=== PATIENT | female | born 1935 | race Caucasian/White ===

== ENCOUNTER 2021-04-14 17:21 | Emergency (ER) | payer MEDICARE, OTHER, SELFPAY ==
[2021-04-14] VITALS (34 sets, daily range): BP systolic 109–154; BP diastolic 54–83; PULSE 64–85; RESP 12–21; TEMP 36.3; O2SAT 95–100
--- NOTE | ~2021-04-14 | CT_ITS ---
EXAMINATION: CT cervical spine wo con DATE: 04/14/2021 19:04 INDICATION: Neck pain. Fall. TECHNIQUE: Computed tomography (CT) of the cervical spine was performed without intravenous contrast. Automated exposure control and iterative reconstruction technique were employed. The dose-length pro duct was 89.83 mGy-cm. COMPARISON: None FINDINGS: There is mild scarring at the lung apices. There is 2 mm retrolisthesis of C3 on C4. Verteb ral body heights are normal. There is severely decreased disc height from C3-C4 through C5-C6 and mod erately decreased disc height at C6-C7. There is interbody fusion at C4-C5. The following disc levels are specifically discussed: C2-C3: There is mild bilateral uncovertebral joint osteoarthritis. There is severe bilateral facet hernán int osteoarthritis. There is mild left neural foraminal stenosis. There is no central canal stenosis. C3-C4: There is severe bilateral uncovertebral joint osteoarthritis. There is severe bilateral facet joint osteoarthritis. There is mild right and moderate left neural foraminal stenosis. There is mild central canal stenosis. C4-C5: There is ankylosis of the uncovertebral joints with mild hypertrophy. There is ankylosis of th e facet joints with moderate hypertrophy. There is mild bilateral neural foraminal stenosis. There is no central canal stenosis. C5-C6: There is severe bilateral uncovertebral joint osteoarthritis. There is mild bilateral facet hernán int osteoarthritis. There is moderate bilateral neural foraminal stenosis. There is mild central flora l stenosis. C6-C7: There is mild right and moderate left uncovertebral joint osteoarthritis. There is severe righ t and mild left facet joint osteoarthritis. There is mild bilateral neural foraminal stenosis. There is mild central canal stenosis. C7-T1: There is no uncovertebral joint osteoarthritis. There is moderate right and mild left facet hernán int osteoarthritis. There is mild bilateral neural foraminal stenosis. There is no central canal sten osis. IMPRESSION: 1. No fracture. 2. Severe cervical spondylosis. Reviewed, dictated and finalized at location A.
--- NOTE | ~2021-04-14 | CT_ITS ---
EXAMINATION: CT brain wo con DATE: 04/14/2021 18:07 INDICATION: Head injury. TECHNIQUE: Computed tomography (CT) of the head was performed without intravenous contrast. The mA wa s adjusted according to patient size. Iterative reconstruction technique was employed. The dose-lengt h product was 529.67 mGy-cm. COMPARISON: Head CT 12/13/2015, brain MRI 12/14/2015 FINDINGS: There is diffuse volume loss of the cerebellum. There are scattered areas of low attenuatio n in the cerebral white matter. There is a 1.4 cm hyperdense mass in right frontal lobe with surround ing low attenuation. There is no acute ischemic infarct. The ventricles are normal in size. There are likely changes of ocular lens replacement surgeries. There is mucosal thickening in the paranasal si nuses. The mastoid air cells are normal. There is a right periorbital laceration. IMPRESSION: 1. 1.4 cm hyperdense mass in right frontal lobe, likely an acute hemorrhagic contusion, especially gi linn the site of injury. Note that neoplasm can have the same appearance. 2. Moderate nonspecific cerebral white matter disease, which likely represents chronic small vessel i schemic disease. 3. Chronic cerebellar atrophy. The differential diagnosis includes normal aging, alcohol abuse, and m edication effects. Reviewed, dictated and finalized at location A. IMPRESSION: 1. 1.4 cm hyperdense mass in right frontal lobe, likely an acute hemorrhagic co ntusion, especially given the site of injury. Note that neoplasm can have the s jeremy appearance. 2. Moderate nonspecific cerebral white matter disease, which likely represents chronic small vessel ischemic disease. 3. Chronic cerebellar atrophy. The differential diagnosis includes normal aging , alcohol abuse, and medication effects.
--- NOTE | 2021-04-14 18:40 | ED.GENADULT ---
HPI - General Adult General Chief complaint: Wound/Laceration Stated complaint: FALL Time Seen by Provider: 04/14/21 17:46 Source: patient and family (son) Mode of arrival: EMS Limitations: other (memory status) History of Present Illness HPI narrative: Patient is a 86-year-old female presenting with chief complaint of laceration to her right brow she sustained prior to arrival after falling and hitting her head on the doorknob according to EMS. Patient son states that he recently dropped her off back home after taking her out for lunch and he received a phone call stating that she had fallen. Patient states that she was walking into the home and thought she caught someone's name so she turned around and began to feel. Patient states that she is not sure what caused her to fall but blames her shoes. However patient was wearing the same new balance that she generally wears on a daily basis. Patient denies any pain or symptoms other than discomfort to her right brow. Patient fell 3 to 4 months ago according to her son and hit and lacerated the same area. He reports she had a CT performed at that time which was normal. Patient denies any changes to her vision or hearing. Patient denies any bleeding or drainage from any of her orifices. Patient denies any pain to her chest, back, or extremities. Patient is not on blood thinner. 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 Related Data Home Medications Medication Instructions Recorded Confirmed levothyroxine 88 mcg PO DAILY 04/14/21 04/14/21 Allergies Allergy/AdvReac Type Severity Reaction Status Date / Time No Known Allergies Allergy Unverified 04/14/21 17:30 Review of Systems Review of Systems: CONSTITUTIONAL: Denies fever, chills, or sweats. EYES: Denies visual changes, redness, or discharge. ENT: Denies rhinorrhea, congestion, sore throat, or otalgia. CARDIOVASCULAR: Denies chest pain, palpitations, or edema. RESPIRATORY: Denies cough or dyspnea. GASTROINTESTINAL: Denies abdominal pain, nausea, vomiting, or diarrhea. GENITOURINARY: Denies dysuria or hematuria. SKIN: Reports laceration denies rash or itching. MUSCULOSKELETAL: Denies back pain, joint pain, or myalgia. NEUROLOGIC: Reports fall denies headache, numbness, dizziness, or weakness. PSYCHIATRIC: Denies anxiety or depression. Exam Narrative: GENERAL: Well-appearing, well-nourished, and in no acute distress. HEAD: Normocephalic, atraumatic. EYES: PERRLA and EOMI. ENT: Nares clear, no rhinorrhea or epistaxis. Mucous membranes moist. Oropharynx without tonsillar hypertrophy exudate or other lesions. Bilateral TMs pearly sandy nonbulging. No hemotypanum. NECK: Supple. No adenopathy or masses. ROM intact. No pain with ROM. CHEST: Clear to auscultation. No respiratory distress. No wheezes rales or rhonchi HEART: Regular rate and rhythm. ABDOMEN: Soft, nontender, nondistended, normal active bowel sounds. EXTREMITIES: Normal range of motion. No edema. SKIN:2cm laceration to right brow. Warm, dry, no rash. NEURO: No focal deficits. Alert and oriented to person and place. PSYCH: Normal mood and affect. Course Vital Signs Vital signs: Vital Signs Temperature 97.4 F L 04/14/21 17:28 Pulse Rate 69 04/14/21 17:28 Respiratory Rate 18 04/14/21 17:28 Blood Pressure 150/67 H 04/14/21 17:28 Pulse Oximetry 100 04/14/21 17:28 Temperature 97.4 F L 04/14/21 17:28 Pulse Rate 69 04/14/21 17:28 Respiratory Rate 18 04/14/21 17:28 Blood Pressure 150/67 H 04/14/21 17:28 Pulse Oximetry 100 04/14/21 17:28 Transfer Transfered to: [facility] Transportation: ALS Transfer rationale: neurosurgery and geritrauma evalustion and management Accepting physician: Dr Quintana- neurosurgery Transfer comments: right frontal hemmoragic mass management Procedures Laceration Laceration 1: Site: face Side (If applicable): right Size (cm): 2 Descripti
[2021-04-14 22:57] LABS: EDCOVIDSCREEN Negative (Negative)
--- NOTE | 2021-04-14 23:09 | PC.NURSE ---
Updated transfer place with negative covid swab - they state they will call back with room #
--- NOTE | 2021-04-14 23:59 | PC.NURSE ---
[facility] [id number]
--- NOTE | 2021-04-15 00:43 | PC.NURSE ---
Addendum entered by Crystal Rasmussen 04/15/21 01:59: 0158: called [facility] for status on eta....0300 Original Note: 0001: Called [facility] to transport to [facility] [id number]...ETA [id number]
[2021-04-15 01:59] VITALS: BP 116/74; PULSE 70; RESP 16; O2SAT 98
[2021-04-15 18:52] LABS: SARS-CoV-2 RNA PCR Negative
== END 2021-04-15 03:19 | disposition short-term general hospital (02) ==
PROVIDERS: Physician Assistant; Emergency Provider Emergency Medicine; PCP Internal Medicine
DX: S06.340A Traumatic hemorrhage of right cerebrum without loss of consciousness, initial encounter (principal); Z20.822 Contact with and (suspected) exposure to COVID-19; W18.30XA Fall on same level, unspecified, initial encounter
CPT/HCPCS: 12011; 36415; 70450; 72125; 87426; 99285; C9803; U0003; U0005

== ENCOUNTER 2021-05-02 10:15 | Emergency (ER) | payer MEDICARE, OTHER, SELFPAY ==
--- NOTE | ~2021-05-02 | XR_ITS ---
EXAMINATION: XR G tube evaluation w imaging EXAM DATE: 05/02/2021 11:40 INDICATION: Tube in stomach? TECHNIQUE: Frontal projection(s) of the abdomen for interpretation after technologist injected 30 mL Omnipaque 350 solution through tube in place. FINDINGS: Injected contrast outlining the inflated balloon which is in the gastric antrum, also outli manny of the rugal folds. There is contrast extending along the tube tract and exiting, along the outs jose d of patient's abdomen. No definite intraperitoneal contrast. There is moderate amount of colonic s tool and gas, no dilated small bowel/obstruction. Lung bases unremarkable. There are bony degenerativ e changes. IMPRESSION: Balloon anchor, tube in position. Contrast leaking along the tube tract out of the patien t. Reviewed, dictated and finalized at location A. IMPRESSION: Balloon anchor, tube in position. Contrast leaking along the tube t ract out of the patient.
[2021-05-02 10:20] VITALS: BP 125/66; PULSE 90; RESP 16; TEMP 36.2; O2SAT 100
--- NOTE | 2021-05-02 13:11 | ED.GENADULT ---
HPI - General Adult General Chief complaint: Unspecified Stated complaint: PULLED OUT G-TUBE Time Seen by Provider: 05/02/21 10:24 Source: EMS and other Mode of arrival: EMS Limitations: clinical condition History of Present Illness HPI narrative: 86-year-old female Arrives by EMS for replacement of G-tube We did not get a prior report from the SNF and had to do quite a bit of sleuthing and discussion with them and her son to try to fill in the back story Patient was apparently transferred from here to [place] about 3 weeks ago after falling and sustaining a hemorrhagic brain contusion It sounds like while she was there she kind of started to get a more or less failure to thrive type picture with some sundowning and a poor appetite and minimal intake and kind of alternating days where she would seem to be fine and alternating days where she would seem very weak lethargic and confused There is a discussion with family at some point last week and it was felt that some of this stuff might be nutritional and they decided that they would be okay with her having a G-tube placed for supplemental feedings In addition it seems like maybe the SNF felt like that would be necessary for her nutrition to be corrected as well April 26 she had a G-tube placed by interventional radiology at [place] A couple days after that she was discharged to [facility] Patient is always very restless and rearranging things and picking at things They had been having her wear an abdominal binder to protect the G-tube but last night when she had the binder taken down to provide local care she grabbed the tube and pulled it out Her son thought that prior to that she had actually been looking pretty good yesterday This would have been 5 days after it was placed, and the tract could not yet be assumed to have matured Staff there was able to place a 18 Czech silicone High catheter back through the opening and secure it and has not used it She was sent over here to have it replaced Appears that she actually is on a soft diet and is taking p.o., just not especially well Also appears on observation in the ER that the G-tube definitely has her attention and she spends most of her time when she is awake picking at the dressings pulling at the tape securing the dressings or pulling on the tube itself making it very questionable in my mind how viable it is going to be to have a tube in there in the long-term Related Data Home Medications Medication Instructions Recorded Confirmed calcium carbonate 500 mg PO DAILY 05/02/21 cholecalciferol (vitamin D3) 50 mcg PO DAILY 05/02/21 [Vitamin D3] cyanocobalamin (vitamin B-12) 1,000 mcg PO DAILY 05/02/21 docusate sodium 100 mg PO DAILY 05/02/21 levothyroxine 75 mcg PO DAILY 05/02/21 quetiapine 25 mg PO HS 05/02/21 sennosides [Senna Lax] mg 05/02/21 Allergies Allergy/AdvReac Type Severity Reaction Status Date / Time No Known Allergies Allergy Unverified 04/14/21 17:30 Review of Systems Review of Systems: All systems reviewed & are unremarkable except as noted in HPI and below ROS unobtainable: Yes other (Poor historian, limited ) Constitutional: Constitutional: Denies fever(s) Respiratory: Respiratory: Denies dyspnea Gastrointestinal: Gastrointestinal: Denies vomiting Exam Const: General: no acute distress and alert Other: Elderly, frail HENMT: Head: normocephalic Ears: external ears normal General nose exam: no epistaxis Other: Fading bruise next to eye Eyes: Conjunctivae: conjunctivae normal EOM: EOMs intact bilaterally Neck: Neck: normal visual inspection, supple and no JVD Resp: Effort & Inspection: normal respiratory effort and not labored Auscultation: no rales, no rhonchi, no wheezes and other (BS =) Cardio: Rate: regular rate Rhythm: regular rhythm Heart sounds: no murmurs GI: GI Palp: Yes Soft to palpation, No Tenderness to palpation present (GI), No Guarding due to
[2021-05-02 13:51] LABS: Basophils Percent Auto 0.3 % (0.2-1.2); Eosinophils Absolute Auto 0.1 K/mm3 (0-0.3); Hemoglobin 10.8 g/dL (12.0-15.0); Immature Granulocyte Absolute 0.05 K/mm3 (0.00-0.031); Immature Granulocyte Percent A 0.4 % (0-0.5); Lymphocytes Absolute Auto 1.18 K/mm3 (0.9-3.2); Lymphocytes Percent Auto 9.4 % (18.3-44.2); Mean Corpuscular HGB Conc 32.7 g/dl (32-36); Mean Corpuscular Hemoglobin 31.3 pg (26-34); Mean Corpuscular Volume 95.7 fl (80-100); Mean Platelet Volume 9.2 fl (7.4-10.4); Monocytes Absolute Auto 0.8 K/mm3 (0.1-0.6); Monocytes Percent Auto 6.2 % (2.6-8.5); Neutrophils Absolute Auto 10.4 K/mm3 (1.3-6.7); Neutrophils Percent Auto 82.7 % (45.5-73.1); Platelet Count Result 284 k/mm3 (150-375); Red Blood Count 3.45 M/mm3 (4.2-5.4); Red Cell Distribution Width 13.6 % (11.5-14.5); White Blood Count 12.6 K/mm3 (4.5-10.0)
[2021-05-02 14:07] LABS: Anion Gap 3 mmol/L (8-16); Blood Urea Nitrogen 26 mg/dL (7-17); Carbon Dioxide 35 mmol/L (22-30); Chloride 95 mmol/L (98-107); Estimated CRCL calculation 48 ml/min; Estimated Glomerular Filt Rate > 60; Glucose 109 mg/dL (65-110); Potassium 4.4 mmol/L (3.4-5.0); Sodium 133 mmol/L (137-145)
[2021-05-02 14:15] VITALS: BP 133/60; PULSE 89; RESP 16; O2SAT 100
[2021-05-02 14:24] LABS: Add Urine Microscopic? YES; Appearance Urine Cloudy (Clear); Bacteria Urine 1+ /hpf; Bilirubin Urine Negative (Negative); Color Urine Yellow (Yellow); Glucose Urine UA Negative (Negative); Ketones Urine Negative (Negative); Leukocyte Esterase Ur 3+ LEU/UL (Negative); Mucus Urine Rare /lpf; Nitrate Urine Negative (Negative); Protein Urine 2+ mg/dL (Negative); Specific Grav Ur 1.018 (1.001-1.035); Urobilinogen Urine Negative mg/dL (<2.0); WBC Urine >75 /hpf
[2021-05-02 14:25] LABS: Blood Urine Negative (Negative)
[2021-05-02] MEDS: HALOPERIDOL LACTATE 5 MG/ML VIAL 2.5 MG IM (16:20)
[2021-05-02 16:40] VITALS: BP 137/93; PULSE 87; RESP 16; O2SAT 100
== END 2021-05-02 16:58 ==
PROVIDERS: Emergency Provider Emergency Medicine; PCP Internal Medicine
DX: Z43.1 Encounter for attention to gastrostomy (principal); N39.0 Urinary tract infection, site not specified
CPT/HCPCS: 36415; 49465; 51701; 80048; 81001; 85025; 87077; 87086; 87186; 96365; 96372; 99284; J0696; J1630

== ENCOUNTER 2021-05-03 17:12 | Emergency (ER) | payer MEDICARE, OTHER, SELFPAY ==
--- NOTE | ~2021-05-03 | XR_ITS ---
XR abdomen obstructive series DATE: 05/03/2021 18:39 INDICATION: Feeding tube pulled out. Evaluate for free air. TECHNIQUE: Portable supine and upright AP views COMPARISON: 05/02/2021 G-tube evaluation with imaging FINDINGS: Gastrostomy tube is no longer evident. There is no evidence of intraperitoneal free air. There is a prominent of fecal material and contrast material within portions of the colon. No bowel o bstruction is evident. The psoas shadows are intact. No visceromegaly is detected. Diffuse osteopenia. IMPRESSION: No evidence of free intraperitoneal air Reviewed, dictated and finalized at [facility]. Reviewed, dictated and finalized at location A.
[2021-05-03 17:23] VITALS: BP 166/90; PULSE 95; RESP 14; TEMP 36.6; O2SAT 99
[2021-05-03] MEDS: PANTOPRAZOLE SODIUM IV 40 MG VIAL IV PUSH (18:07)
[2021-05-03 18:23] LABS: Basophils Absolute Auto 0.1 K/mm3 (0.0-0.1); Basophils Percent Auto 0.4 % (0.2-1.2); Eosinophils Absolute Auto 0.1 K/mm3 (0-0.3); Eosinophils Percent Auto 0.5 % (0-4.4); Hematocrit 33.3 % (37.0-47.0); Hemoglobin 10.9 g/dL (12.0-15.0); Immature Granulocyte Absolute 0.06 K/mm3 (0.00-0.031); Immature Granulocyte Percent A 0.5 % (0-0.5); Lymphocytes Percent Auto 7.7 % (18.3-44.2); Mean Corpuscular HGB Conc 32.7 g/dl (32-36); Mean Corpuscular Volume 94.6 fl (80-100); Mean Platelet Volume 8.8 fl (7.4-10.4); Monocytes Percent Auto 7.7 % (2.6-8.5); Neutrophils Absolute Auto 10.7 K/mm3 (1.3-6.7); Neutrophils Percent Auto 83.2 % (45.5-73.1); Platelet Count Result 369 k/mm3 (150-375); Red Blood Count 3.52 M/mm3 (4.2-5.4); Red Cell Distribution Width 13.4 % (11.5-14.5); White Blood Count 12.9 K/mm3 (4.5-10.0)
[2021-05-03 18:29] LABS: Prothrombin Time 13.5 Seconds (11.1-14.7)
[2021-05-03 18:30] LABS: Partial Thromboplastin Time 25.8 SECONDS (22.3-36.8)
[2021-05-03 18:31] LABS: Alanine Aminotransferase 39 U/L (4-35); Albumin Level 3.7 g/dL (3.5-5.1); Alkaline Phosphatase 76 U/L (38-126); Anion Gap 8 mmol/L (8-16); Aspartate Amino Transferase 52 U/L (14-36); Bilirubin,Total 0.5 mg/dL (0.2-1.3); Blood Urea Nitrogen 27 mg/dL (7-17); Calcium 9.6 mg/dL (8.4-10.2); Carbon Dioxide 38 mmol/L (22-30); Chloride 91 mmol/L (98-107); Estimated Glomerular Filt Rate > 60; Glucose 115 mg/dL (65-110); Potassium 4.4 mmol/L (3.4-5.0); Sodium 137 mmol/L (137-145)
[2021-05-03 18:48] VITALS: BP 154/62; PULSE 100; RESP 12; O2SAT 99
--- NOTE | 2021-05-03 18:50 | ED.GENADULT ---
HPI - General Adult General Chief complaint: GI Bleed Stated complaint: stoma issues Time Seen by Provider: 05/03/21 17:31 History of Present Illness HPI narrative: Patient is an 86-year-old female with dementia who presents ER with concerns for GI bleed. Patient had a G-tube that she ripped out 2 days ago. A replacement High with the balloon was inserted through the stoma, she ripped that out last night. She has been having acid weep out then apparently some coffee-ground appearing material came out which prompted the senior living to send her to the ER. Son present at bedside reports he does not want patient to have a G-tube any longer that is just a major problem. Related Data Home Medications Medication Instructions Recorded Confirmed calcium carbonate 500 mg PO DAILY 05/02/21 cholecalciferol (vitamin D3) 50 mcg PO DAILY 05/02/21 [Vitamin D3] cyanocobalamin (vitamin B-12) 1,000 mcg PO DAILY 05/02/21 docusate sodium 100 mg PO DAILY 05/02/21 levothyroxine 75 mcg PO DAILY 05/02/21 quetiapine 25 mg PO HS 05/02/21 sennosides [Senna Lax] mg 05/02/21 Allergies Allergy/AdvReac Type Severity Reaction Status Date / Time No Known Allergies Allergy Unverified 04/14/21 17:30 Review of Systems Review of Systems: ROS unobtainable: Yes unobtainable due to mental status PMFSH Past Medical History Medical History (Updated 05/03/21 @ 19:52 by Juan Carlos Wild MD) Dementia Dislodged gastrostomy tube Hypothyroid Social History Social History (Updated 05/03/21 @ 18:53 by Juan Carlos Wild MD) Social History: Lives at [facility] Exam Narrative: GENERAL: Chronically ill-appearing, well-nourished, and in no acute distress. HEAD: Normocephalic, atraumatic. EYES: PERRL and EOMI. CHEST: Clear to auscultation. No respiratory distress. HEART: Regular rate and rhythm. Normal peripheral pulses. ABDOMEN: Soft, nontender, nondistended, left upper quadrant stoma leaking gastric contents. No peritoneal signs of the abdomen. EXTREMITIES: Normal range of motion. No edema. SKIN: Warm, dry. The skin around the stoma site is irritated and has breakdown related to acidic material running down the wall of the abdomen. NEURO: Awake and alert, not oriented. PSYCH: Normal mood and affect. Course Course Emergency Course: Patient more comfortable after Ativan. No free air on x-ray. Discussed case with Dr. Quiroz who feels that despite the area being dilated it should close within 1 week. Also discussed with Dr. Enriquez who reports he thinks it is more open than typical due to repeated trauma that dilated the fistula. He also feels in the next week it should close and that we should address this with an ABD pad. Patient be treated with twice daily Protonix at home. Its not felt that patient has a GI bleed but is felt that she likely has bleeding from repeated trauma to the fistula. Patient was treated for UTI yesterday with ceftriaxone and is receiving meds at the senior living. Hemoglobin and white count stable. Vital Signs Vital signs: Vital Signs Temperature 97.9 F 05/03/21 17:23 Pulse Rate 95 05/03/21 17:23 Respiratory Rate 14 05/03/21 17:23 Blood Pressure 166/90 H 05/03/21 17:23 Pulse Oximetry 99 05/03/21 17:23 Temperature 97.9 F 05/03/21 17:23 Pulse Rate 69 05/04/21 00:18 Respiratory Rate 18 05/04/21 00:18 Blood Pressure 116/85 05/04/21 00:18 Pulse Oximetry 99 05/03/21 18:48 Medical Decision Making Vital Signs Vital Signs: Vital Signs Temperature 97.9 F 05/03/21 17:23 Pulse Rate 95 05/03/21 17:23 Respiratory Rate 14 05/03/21 17:23 Blood Pressure 166/90 H 05/03/21 17:23 Pulse Oximetry 99 05/03/21 17:23 Temperature 97.9 F 05/03/21 17:23 Pulse Rate 69 05/04/21 00:18 Respiratory Rate 18 05/04/21 00:18 Blood Pressure 116/85 05/04/21 00:18 Pulse Oximetry 99 05/03/21 18:48 Lab Data Result diagrams: 05/03/21 18:08 05/03/21
[2021-05-03] MEDS: LORazepam INJ (*CRX) 2 MG/ML VIAL 1 MG IV PUSH (18:55)
--- NOTE | 2021-05-03 22:26 | PC.NURSE ---
called [facility] to request transport. ETA [id number]
--- NOTE | 2021-05-03 23:21 | PC.NURSE ---
called [facility] for ETA update. ETA 0130 called [facility] to request transport. dispatch is paging out.
--- NOTE | 2021-05-03 23:39 | PC.NURSE ---
Confirmed [facility] is enroute. Cancelled [facility].
[2021-05-04 00:18] VITALS: BP 116/85; PULSE 69; RESP 18
== END 2021-05-04 00:20 ==
PROVIDERS: Emergency Provider Emergency Medicine; PCP Internal Medicine
DX: Z43.1 Encounter for attention to gastrostomy (principal); N39.0 Urinary tract infection, site not specified; F03.90 Unspecified dementia, unspecified severity, without behavioral disturbance, psychotic disturbance, mood disturbance, and anxiety; E03.9 Hypothyroidism, unspecified
CPT/HCPCS: 36415; 74019; 80053; 85025; 85610; 85730; 96374; 96375; 99284; C9113; J2060

== ENCOUNTER 2021-06-07 04:33 | Emergency (ER) | payer MEDICARE, OTHER, SELFPAY ==
--- NOTE | ~2021-06-07 | CT_ITS ---
EXAMINATION: CT cervical spine wo con DATE: 06/07/2021 05:53 INDICATION: Neck pain. Fall. TECHNIQUE: Computed tomography (CT) of the cervical spine was performed without intravenous contrast. Automated exposure control and iterative reconstruction technique were employed. The dose-length pro duct was 119.64 mGy-cm. COMPARISON: CT cervical spine 04/14/2021 FINDINGS: There is mild scarring at the lung apices. There is a 5 mm nodule in right upper lobe, like ly benign. There is 4 degrees dextrocurvature of cervical spine. There is 2 mm retrolisthesis of C3 o n C4. Vertebral body heights are normal. There is severely decreased disc height from C3-C4 through C 5-C6 and moderately decreased disc height at C6-C7. There is interbody fusion at C4-C5. The following disc levels are specifically discussed: C2-C3: There is mild bilateral uncovertebral joint osteoarthritis. There is severe bilateral facet hernán int osteoarthritis. There is mild left neural foraminal stenosis. There is no central canal stenosis. C3-C4: There is severe bilateral uncovertebral joint osteoarthritis. There is severe bilateral facet joint osteoarthritis. There is mild right and moderate left neural foraminal stenosis. There is mild central canal stenosis. C4-C5: There is mild bilateral uncovertebral joint osteoarthritis. There is ankylosis of the facet hernán ints with moderate hypertrophy. There is mild bilateral neural foraminal stenosis. There is no centra l canal stenosis. C5-C6: There is severe bilateral uncovertebral joint osteoarthritis. There is mild bilateral facet hernán int osteoarthritis. There is moderate bilateral neural foraminal stenosis. There is mild central flora l stenosis. C6-C7: There is mild right and moderate left uncovertebral joint osteoarthritis. There is severe righ t and mild left facet joint osteoarthritis. There is mild bilateral neural foraminal stenosis. There is mild central canal stenosis. C7-T1: There is no uncovertebral joint osteoarthritis. There is moderate right and mild left facet hernán int osteoarthritis. There is no neural foraminal stenosis. There is no central canal stenosis. IMPRESSION: 1. No fracture. 2. Severe cervical spondylosis. Reviewed, dictated and finalized at location A. ZIPPER TRIMMER
--- NOTE | ~2021-06-07 | XR_ITS ---
EXAMINATION: XR shoulder RT min 2V DATE: 06/07/2021 06:06 INDICATION: Right shoulder pain. Fall. TECHNIQUE: 2 views of right shoulder were obtained. COMPARISON: None. FINDINGS: There is a comminuted fracture of proximal right humerus including a nondisplaced component at the greater tuberosity and displaced component at the surgical neck. The main distal fracture fra gment demonstrates one shaft width medial displacement. There is mild osteoarthritis of glenohumeral joint. There are likely changes of distal clavicle resection and acromioplasty. IMPRESSION: 1. Comminuted two-part fracture of proximal right humerus. 2. Mild acromioclavicular joint osteoarthritis. Reviewed, dictated and finalized at location A. RAL RESOURCES PROFESSOR
--- NOTE | ~2021-06-07 | CT_ITS ---
EXAMINATION: CT brain wo con DATE: 06/07/2021 05:53 INDICATION: Head injury. TECHNIQUE: Computed tomography (CT) of the head was performed without intravenous contrast. The mA wa s adjusted according to patient size. Iterative reconstruction technique was employed. The dose-lengt h product was 605.33 mGy-cm. COMPARISON: Head CT 04/14/2021, brain MRI 12/14/2015 FINDINGS: There is diffuse volume loss of the cerebellum. There are scattered areas of low attenuatio n in the cerebral white matter. There is a 14 mm mass in right frontal lobe with hypodense center and periphery that is isodense to sandy matter. There is no acute ischemic infarct. The ventricles are no rmal in size. There is mild mucosal thickening in the ethmoid sinuses. The mastoid air cells are norm al. There are likely changes of ocular lens replacement surgeries. IMPRESSION: 1. 14 mm mass in right frontal lobe again seen with interval decrease in attenuation, consistent with subacute hematoma. Neoplasm cannot be excluded. 2. Moderate nonspecific cerebral white matter disease, which likely represents chronic small vessel i schemic disease. 3. Chronic cerebellar atrophy. The differential diagnosis includes normal aging, alcohol abuse, and m edication effects. Reviewed, dictated and finalized at location A. NG MACHINE SET UP OPERATOR IMPRESSION: 1. 14 mm mass in right frontal lobe again seen with interval decrease in attenu ation, consistent with subacute hematoma. Neoplasm cannot be excluded. 2. Moderate nonspecific cerebral white matter disease, which likely represents chronic small vessel ischemic disease. 3. Chronic cerebellar atrophy. The differential diagnosis includes normal aging , alcohol abuse, and medication effects.
--- NOTE | ~2021-06-07 | XR_ITS ---
EXAMINATION: XR shoulder RT min 2V DATE: 06/07/2021 07:33 INDICATION: Fracture of proximal right humerus status post reduction. TECHNIQUE: 3 views of right shoulder were obtained. COMPARISON: Right shoulder radiographs 06/07/2021 at 6:02 AM FINDINGS: There is a comminuted fracture of proximal right humerus with displaced fracture component at the surgical neck and impacted fracture component at the greater tuberosity. The main distal fract ure fragment demonstrates one shaft width anterior and medial displacement and shortening. There is a t least mild osteoarthritis of glenohumeral joint. There are likely changes of distal clavicle resect ion. IMPRESSION: 1. Comminuted three-part fracture of proximal right humerus with little change in alignment of the ma in distal fracture fragment. 2. Mild glenohumeral joint osteoarthritis. Reviewed, dictated and finalized at location A. E HAND IMPRESSION: 1. Comminuted three-part fracture of proximal right humerus with little change in alignment of the main distal fracture fragment. 2. Mild glenohumeral joint osteoarthritis.
[2021-06-07 04:33] VITALS: BP 99/50; PULSE 89; RESP 20; TEMP 36.4; O2SAT 100
--- NOTE | 2021-06-07 05:14 | ECG_ITS ---
Measurements Intervals [place] Rate: 97 P: 81 [place]: 137 QRS: 23 QRSD: 85 T: 64 QT: 297 QTc: 378 Interpretive Statements SINUS RHYTHM BORDERLINE R WAVE PROGRESSION, ANTERIOR LEADS CONSIDER INFERIOR INFARCT, AGE INDETERMINATE BORDERLINE T WAVE ABNORMALITY- HIGH LATERAL LEADS BASELINE ARTIFACT- I, II, III, AVR, AVL, AVF, V2-V3 ABNORMAL ECG Electronically Signed On 06-07-2021 16:15:21 [employer] by Markie Ireland D.O.
[2021-06-07 05:47] LABS: Basophils Percent Auto 0.1 % (0.2-1.2); Eosinophils Percent Auto 0.1 % (0-4.4); Hemoglobin 12.6 g/dL (12.0-15.0); Immature Granulocyte Absolute 0.04 K/mm3 (0.00-0.031); Immature Granulocyte Percent A 0.4 % (0-0.5); Lymphocytes Absolute Auto 1.43 K/mm3 (0.9-3.2); Lymphocytes Percent Auto 14.9 % (18.3-44.2); Mean Corpuscular HGB Conc 32.3 g/dl (32-36); Mean Corpuscular Hemoglobin 29.1 pg (26-34); Mean Corpuscular Volume 90.1 fl (80-100); Mean Platelet Volume 9.2 fl (7.4-10.4); Monocytes Absolute Auto 0.4 K/mm3 (0.1-0.6); Monocytes Percent Auto 3.8 % (2.6-8.5); Neutrophils Absolute Auto 7.7 K/mm3 (1.3-6.7); Neutrophils Percent Auto 80.7 % (45.5-73.1); Platelet Count Result 384 k/mm3 (150-375); Red Blood Count 4.33 M/mm3 (4.2-5.4); Red Cell Distribution Width 13.9 % (11.5-14.5); White Blood Count 9.6 K/mm3 (4.5-10.0)
[2021-06-07 05:57] LABS: INR 0.9; Prothrombin Time 12.1 Seconds (11.1-14.7)
[2021-06-07 05:58] LABS: Partial Thromboplastin Time 22.8 SECONDS (22.3-36.8)
--- NOTE | 2021-06-07 06:30 | ED.FALL ---
HPI - Fall General Chief Complaint: Fall Stated Complaint: unwitnessed fall, r shoulder pain, HI Time Seen by Provider: 06/07/21 04:54 Source: patient Mode of arrival: EMS Limitations: dementia History of Present Illness HPI Narrative: This is an 86 year old female with history dementia, subdural hematoma who presents from [facility] for evaluation of a fall. Patient has history of frequent falls. She has come from [facility]. She had a ground level fall but no LOC. She was found to have hematoma to head. she is complaining of right shoulder pain. Related Data Home Medications Medication Instructions Recorded Confirmed calcium carbonate 500 mg PO DAILY 05/02/21 cholecalciferol (vitamin D3) 50 mcg PO DAILY 05/02/21 [Vitamin D3] cyanocobalamin (vitamin B-12) 1,000 mcg PO DAILY 05/02/21 docusate sodium 100 mg PO DAILY 05/02/21 levothyroxine 75 mcg PO DAILY 05/02/21 quetiapine 25 mg PO HS 05/02/21 sennosides [Senna Lax] mg 05/02/21 Allergies Allergy/AdvReac Type Severity Reaction Status Date / Time No Known Allergies Allergy Verified 06/07/21 04:49 Review of Systems Review of Systems: All systems reviewed & are unremarkable except as noted in HPI and below PMFSH Past Medical History Medical History (Updated 06/07/21 @ 08:40 by Jen Holman MD) Dementia Dislodged gastrostomy tube History of gastrostomy tube placement Hypothyroid Intracranial hemorrhage Social History Social History (Updated 05/03/21 @ 18:53 by Juan Carlos Wild MD) Social History: Lives at [facility] Exam Const: General: alert Nutritional Appearance: thin HENMT: Head: contusion (ecchymosis to right forehead and face) Throat: uvula midline Eyes: Pupils: Equal, round and reactive pupils present EOM: EOMs intact bilaterally Chest: Chest palpation & inspection: normal inspection of the chest Resp: Effort & Inspection: normal respiratory effort and no retractions Auscultation: clear to auscultation bilaterally Cardio: Rate: regular rate Rhythm: regular rhythm Heart sounds: no murmurs GI: GI Palp: Yes Soft to palpation, No Tenderness to palpation present (GI) and No Guarding due to palpation present (GI) Neuro: General: moves all extremities (except right shoulder due to pain, able to move fingers) Extrem: Other: right shoulder tenderness and swelling Psych: Affect: Anxious affect present Course Reevaluation(s) Reevaluation #1: I Discussed with patient's son patient injury. He understands she will be discharged to [facility] in [facility] immobilizer. No new intracranial hemorrhage. PAtient is more calm now after pain medications. Date: 06/07/21 Time: 08:37 Consultations Consultation #1: I discussed case with Dr. Mejia who agrees patient to be placed in shoulder immobilizer and follow up. Date: 06/07/21 Time: 08:10 Vital Signs Vital signs: Vital Signs Temperature 97.6 F 06/07/21 04:33 Pulse Rate 89 06/07/21 04:33 Respiratory Rate 20 06/07/21 04:33 Blood Pressure 99/50 L 06/07/21 04:33 Pulse Oximetry 100 06/07/21 04:33 Temperature 97.6 F 06/07/21 04:33 Pulse Rate 86 06/07/21 09:49 Respiratory Rate 16 06/07/21 09:49 Blood Pressure 142/62 H 06/07/21 09:49 Pulse Oximetry 98 06/07/21 09:49 MDM - Fall Medical Records Attestation: I reviewed the patient's medical records. Lab Data Attestation: I reviewed the patient's lab results. Result diagrams: 06/07/21 05:27 06/07/21 06:30 Labs: Lab Results 06/07/21 06/07/21 06/07/21 Range/Units 05:27 05:27 06:16 WBC 9.6 (4.5-10.0) K/mm3 RBC 4.33 (4.2-5.4) M/mm3 Hgb 12.6 (12.0-15.0) g/dL Hct 39.0 (37.0-47.0) % MCV 90.1 (80-100) fl MCH 29.1 (26-34) pg MCHC 32.3 (32-36) g/dl RDW 13.9 (11.5-14.5) % Plt Count 384 H (150-375) k/mm3 MPV 9.2 (7.4-10.4) fl Immature Gran % (Auto) 0.4 (0-0.5) % Neut % (Auto
[2021-06-07] MEDS: SODIUM CHLORIDE 0.9% IV 1,000 ML 999 ML IV CONT (06:39)
[2021-06-07] MEDS: ONDANSETRON INJ 4 MG/2 ML VIAL IV PUSH (06:39)
[2021-06-07] MEDS: MORPHINE SULFATE (*CRX) 4 MG/ML INJ IV PUSH (06:40)
[2021-06-07 06:43] LABS: Add Urine Microscopic? YES; Appearance Urine Clear (Clear); Bilirubin Urine Negative (Negative); Blood Urine Negative (Negative); Color Urine Yellow (Yellow); Glucose Urine UA Negative (Negative); Ketones Urine Trace mg/dL (Negative); Leukocyte Esterase Ur Negative LEU/UL (Negative); Mucus Urine Rare /lpf; Nitrate Urine Negative (Negative); Protein Urine Negative (Negative); RBC Urine 0-2 /hpf (0-2); Urobilinogen Urine Negative mg/dL (<2.0); WBC Urine 0-3 /hpf
[2021-06-07 06:53] LABS: Alanine Aminotransferase 16 U/L (4-35); Albumin Level 3.6 g/dL (3.5-5.1); Alkaline Phosphatase 83 U/L (38-126); Anion Gap 5 mmol/L (8-16); Aspartate Amino Transferase 24 U/L (14-36); Bilirubin,Total 0.5 mg/dL (0.2-1.3); Blood Urea Nitrogen 13 mg/dL (7-17); Calcium 9.4 mg/dL (8.4-10.2); Carbon Dioxide 27 mmol/L (22-30); Chloride 98 mmol/L (98-107); Estimated Glomerular Filt Rate > 60; Glucose 105 mg/dL (65-110); Potassium 3.5 mmol/L (3.4-5.0); Sodium 130 mmol/L (137-145)
[2021-06-07 06:58] VITALS: BP 147/63; PULSE 81; RESP 18; O2SAT 100
[2021-06-07] MEDS: HYDROmorphone HCL INJ (*CRX) 1 MG/ML SYR 0.5 MG IV PUSH (07:36)
[2021-06-07 09:49] VITALS: BP 142/62; PULSE 86; RESP 16; O2SAT 98
== END 2021-06-07 09:56 ==
PROVIDERS: Emergency Provider General Practice; PCP Internal Medicine
DX: S00.83XA Contusion of other part of head, initial encounter (principal); S42.231A 3-part fracture of surgical neck of right humerus, initial encounter for closed fracture; F03.90 Unspecified dementia, unspecified severity, without behavioral disturbance, psychotic disturbance, mood disturbance, and anxiety; R29.6 Repeated falls; E03.9 Hypothyroidism, unspecified; M19.011 Primary osteoarthritis, right shoulder; R94.31 Abnormal electrocardiogram [ECG] [EKG]; M47.812 Spondylosis without myelopathy or radiculopathy, cervical region; R90.82 White matter disease, unspecified; G93.9 Disorder of brain, unspecified; G31.9 Degenerative disease of nervous system, unspecified; W19.XXXA Unspecified fall, initial encounter
CPT/HCPCS: 23605; 23650; 36415; 51701; 70450; 72125; 73030; 80053; 81001; 85025; 85610; 85730; 93005; 96361; 96365; 96375; 99284; 99285; J0131; J1170; J2270; J2405; J7030

== ENCOUNTER 2021-06-14 15:26 | Emergency (ER) | payer MEDICARE, OTHER, SELFPAY ==
[2021-06-14] VITALS (7 sets, daily range): BP systolic 111–136; BP diastolic 75–95; PULSE 92–101; RESP 8–22; O2SAT 100
--- NOTE | ~2021-06-14 | XR_ITS ---
EXAMINATION: XR chest 1V portable DATE: 06/14/2021 17:09 INDICATION: Lethargy. TECHNIQUE: A single frontal view of the chest was obtained. COMPARISON: Chest 2 views 12/13/2015, right shoulder radiographs 06/11/2021 FINDINGS: There are 9 mm and 13 mm nodules in left lung. There is an 8 mm nodule in right lung. There are airspace opacities in right lower lung zone. No pleural effusion or pneumothorax. The heart size is normal. Again seen is a two-part fracture of proximal right humerus. IMPRESSION: 1. Airspace opacities in right lower lung zone, consistent with atelectasis versus pneumonia. 2. Multiple pulmonary nodules suspicious for metastatic disease. Noncontrast chest CT is recommended. Reviewed, dictated and finalized at location A. ANCE MECHANIC IMPRESSION: 1. Airspace opacities in right lower lung zone, consistent with atelectasis anson leonela pneumonia. 2. Multiple pulmonary nodules suspicious for metastatic disease. Noncontrast ch est CT is recommended.
[2021-06-14 16:01] LABS: Basophils Absolute Auto 0.1 K/mm3 (0.0-0.1); Basophils Percent Auto 0.6 % (0.2-1.2); Eosinophils Absolute Auto 0.3 K/mm3 (0-0.3); Eosinophils Percent Auto 2.4 % (0-4.4); Hemoglobin 10.7 g/dL (12.0-15.0); Immature Granulocyte Absolute 0.03 K/mm3 (0.00-0.031); Immature Granulocyte Percent A 0.3 % (0-0.5); Lymphocytes Absolute Auto 1.52 K/mm3 (0.9-3.2); Lymphocytes Percent Auto 12.7 % (18.3-44.2); Mean Corpuscular HGB Conc 31.5 g/dl (32-36); Mean Corpuscular Hemoglobin 29.8 pg (26-34); Mean Corpuscular Volume 94.7 fl (80-100); Mean Platelet Volume 9.4 fl (7.4-10.4); Monocytes Absolute Auto 0.6 K/mm3 (0.1-0.6); Monocytes Percent Auto 4.8 % (2.6-8.5); Neutrophils Absolute Auto 9.5 K/mm3 (1.3-6.7); Neutrophils Percent Auto 79.2 % (45.5-73.1); Platelet Count Result 395 k/mm3 (150-375); Red Blood Count 3.59 M/mm3 (4.2-5.4); Red Cell Distribution Width 14.9 % (11.5-14.5)
[2021-06-14 17:09] LABS: Anion Gap 6 mmol/L (8-16); Blood Urea Nitrogen 27 mg/dL (7-17); Calcium 9.1 mg/dL (8.4-10.2); Carbon Dioxide 28 mmol/L (22-30); Chloride 102 mmol/L (98-107); Estimated CRCL calculation 45 ml/min; Estimated Glomerular Filt Rate > 60; Glucose 126 mg/dL (65-110); Potassium 3.9 mmol/L (3.4-5.0); Sodium 136 mmol/L (137-145)
[2021-06-14 17:10] LABS: Alanine Aminotransferase 13 U/L (4-35); Albumin Level 3.4 g/dL (3.5-5.1); Alkaline Phosphatase 90 U/L (38-126); Anion Gap 5 mmol/L (8-16); Aspartate Amino Transferase 23 U/L (14-36); Bilirubin,Total 0.6 mg/dL (0.2-1.3); Blood Urea Nitrogen 27 mg/dL (7-17); Carbon Dioxide 27 mmol/L (22-30); Chloride 102 mmol/L (98-107); Estimated CRCL calculation 45 ml/min; Estimated Glomerular Filt Rate > 60; Glucose 126 mg/dL (65-110); Potassium 3.9 mmol/L (3.4-5.0); Sodium 134 mmol/L (137-145)
--- NOTE | 2021-06-14 17:40 | PC.NURSE ---
son at bedside. made aware of plan of care
[2021-06-14 17:42] LABS: Add Urine Microscopic? YES; Appearance Urine Turbid (Clear); Bilirubin Urine Negative (Negative); Blood Urine Negative (Negative); Color Urine Amber (Yellow); Glucose Urine UA Negative (Negative); Ketones Urine Negative (Negative); Leukocyte Esterase Ur 2+ LEU/UL (Negative); Nitrate Urine Positive (Negative); Protein Urine 3+ mg/dL (Negative); RBC Urine 21-50 /hpf (0-2); WBC Clumps Urine Present /HPF; WBC Urine >75 /hpf
--- NOTE | 2021-06-14 18:23 | PC.NURSE ---
made contact with [facility] to transfer pt back to [place]. [id number]
--- NOTE | 2021-06-14 18:28 | ED.RECABL ---
HPI - Recheck/Abnormal Lab/Rx General Chief Complaint: Recheck/Abnormal Lab/Rx Stated Complaint: HBG 6.6 Time Seen by Provider: 06/14/21 16:21 Source: patient, EMS, RN notes reviewed and old records reviewed Mode of arrival: EMS Limitations: dementia History of Present Illness HPI narrative: This is an 86 year old female with history of dementia who presents from half-way for evaluation of low hemoglobin. Nursing states patient had labs due to increased sleeping by patient for 3 days. Patient is not as combative as usual so they were evaluated patient. Patient reports right arm pain from a right humerus fracture that she suffered 1 week ago. She is oriented to person and she is at baseline. She follows commands. She denies nausea, vomiting chest pain, shortness of breath or abdominal pain. She denies any leg pain. Related Data Home Medications Medication Instructions Recorded Confirmed calcium carbonate 500 mg PO DAILY 05/02/21 06/11/21 cholecalciferol (vitamin D3) 50 mcg PO DAILY 05/02/21 06/11/21 [Vitamin D3] cyanocobalamin (vitamin B-12) 1,000 mcg PO DAILY 05/02/21 06/11/21 docusate sodium 100 mg PO BID 05/02/21 06/11/21 levothyroxine 75 mcg DAILY 05/02/21 06/11/21 quetiapine 25 mg PO HS 05/02/21 06/11/21 sennosides [Senna Lax] mg 05/02/21 06/11/21 alprazolam [Xanax] 0.25 mg PO BID 06/14/21 bisacodyl 10 mg RECTAL DAILY PRN 06/14/21 [id number] acid-lutein [Adult tablet PO 06/14/21 Multivitamin (w-lutein)] Allergies Allergy/AdvReac Type Severity Reaction Status Date / Time No Known Allergies Allergy Verified 06/14/21 15:53 Review of Systems Review of Systems: All systems reviewed & are unremarkable except as noted in HPI and below PMFSH Past Medical History Medical History Breast cancer Dementia Dilatation of esophagus 2017 per patient's questionnaire Dislodged gastrostomy tube History of gastrostomy tube placement Hypothyroid Intracranial hemorrhage Vertigo Surgical History Surgical History History of cataract surgery 1997 Dr. Arce per patient's questionnaire History of mastectomy [address] Joe Tinoco per patient's questionnaire Social History Social History Social History: Lives at [facility] Smoking status: Never smoker Alcohol intake: never Substance use: never Substance use type: does not use Gender identity (if verbalized by the patient): Female Exam Const: General: no acute distress and alert Nutritional Appearance: thin HENMT: Head: normocephalic and other (old ecchymosis to right face) Face and sinus: sinuses nontender and face symmetric Mouth: Yes Normal oral and palatal mucosa present, Yes lip normal, Yes oropharynx normal and Yes moist mucous membranes Eyes: EOM: EOMs intact bilaterally Resp: Effort & Inspection: normal respiratory effort and no retractions Auscultation: clear to auscultation bilaterally Cardio: Rate: regular rate Rhythm: regular rhythm Heart sounds: no murmurs GI: GI Palp: Yes Soft to palpation, No Tenderness to palpation present (GI) and No Guarding due to palpation present (GI) Auscultation: normal bowel sounds Skin: General skin exam: normal color (except bruising to right face and arm) Neuro: General: moves all extremities Extrem: Other: right arm in shoulder immobilizer, moving fingers. Ask you not to touch it Psych: Attitude: cooperative Course Reevaluation(s) Reevaluation #1: PAtient's hemoglobin is stable at 10.7. She was found to have UTI so she was given antibiotics. She is being discharged back to [facility]. Date: 06/14/21 Time: 18:39 Vital Signs Vital signs: Vital Signs Pulse Rate 92 06/14/21 15:28 Respiratory Rate 16 06/14/21 15:28 Blood Pressure 136/75 06/14/21 15:28 Pulse Oximetry 100 06/14/21 15:28
== END 2021-06-14 19:31 ==
PROVIDERS: Emergency Medicine; Emergency Provider General Practice; PCP Internal Medicine
DX: D64.9 Anemia, unspecified (principal); N39.0 Urinary tract infection, site not specified; F03.90 Unspecified dementia, unspecified severity, without behavioral disturbance, psychotic disturbance, mood disturbance, and anxiety; E03.9 Hypothyroidism, unspecified; Z85.3 Personal history of malignant neoplasm of breast; Z90.10 Acquired absence of unspecified breast and nipple; Z98.49 Cataract extraction status, unspecified eye; R91.8 Other nonspecific abnormal finding of lung field
CPT/HCPCS: 36415; 51701; 71045; 80048; 80053; 81001; 85025; 87077; 87086; 87186; 96374; 99284; J0696